=== PATIENT | male | born 1965 | race Two or more races ===

== ENCOUNTER 2021-08-14 21:01 | Emergency (ER) | payer OTHER ==
[~2021-08-14] VITALS: Ht 165.1 cm; Wt 90.7 kg
[2021-08-14] MEDS ORDERED: LOTREL 5-10 MG1 CAP PO (21:06)
[2021-08-14] MEDS ORDERED: INDAPAMIDE1.25 MG PO (21:07)
[2021-08-14] MEDS ORDERED: REMERON15 M1 PO (21:10)
[2021-08-14] MEDS ORDERED: AMBIEN10 MG PO (21:10)
[2021-08-14] MEDS ORDERED: LAMICTAL150 M1 PO (21:10)
[2021-08-14] MEDS ORDERED: LAMICTAL100 MG PO (21:10)
[2021-08-14] MEDS ORDERED: ZYRTEC10 M3 PO (21:11)
[2021-08-14] MEDS ORDERED: SINGULAIR10 MG PO (21:11)
[2021-08-15] MEDS ORDERED: LEVSIN/SL0.125 MG SL (02:28)
[2021-08-15] MEDS ORDERED: ANUSOL-HC30 G2 TOP (02:28)
[2021-08-15] MEDS ORDERED: CIPRO500 MG PO (02:28)
== END 2021-08-15 02:49 | disposition home or self-care (01) ==
LOC: ER 21:01
DX: K60.0 Acute anal fissure (principal); R10.30 Lower abdominal pain, unspecified

== ENCOUNTER 2021-09-18 11:35 | Inpatient (IN) | payer OTHER ==
[~2021-09-18] VITALS: Ht 165.1 cm; Wt 90.7 kg
[~2021-09-18 11:35] MED LIST: AMBIEN10 MG PO; ANUSOL-HC30 G2 TOP; CIPRO500 MG PO; INDAPAMIDE1.25 MG PO; LAMICTAL100 MG PO; LAMICTAL150 M1 PO; LEVSIN/SL0.125 MG SL; LOTREL 5-10 MG1 CAP PO; REMERON15 M1 PO; SINGULAIR10 MG PO; ZYRTEC10 M3 PO
[2021-09-25] MEDS ORDERED: PERCOCET 5-3251 EACH PO (07:38)
[2021-09-25] MEDS ORDERED: INTESTINEX680 M1 PO (07:39)
[2021-09-25] MEDS ORDERED: ANTI-GAS166 MG PO (07:39)
== END 2021-09-25 10:33 | disposition home or self-care (01) | DRG 330 ==
LOC: SURH 09-22 09:30 → O/R 09-22 09:49 → SURH 09-22 12:15
PROVIDERS: ADMIT Surgery; ATTEND Surgery
PROC: 0DBP4ZZ Excision of Rectum, Percutaneous Endoscopic Approach (ICD-10-PCS; 2021-09-22)
PROC: 0DJD8ZZ Inspection of Lower Intestinal Tract, Via Natural or Artificial Opening Endoscopic (ICD-10-PCS; 2021-09-22)
PROC: 0DTN4ZZ Resection of Sigmoid Colon, Percutaneous Endoscopic Approach (ICD-10-PCS; principal; 2021-09-22 09:30)
DX: K57.32 Diverticulitis of large intestine without perforation or abscess without bleeding (principal); F33.9 Major depressive disorder, recurrent, unspecified; I10 Essential (primary) hypertension; E66.8 Other obesity; G47.33 Obstructive sleep apnea (adult) (pediatric); G47.09 Other insomnia

== ENCOUNTER 2024-06-12 07:11 | Day surgery (SDC) | payer OTHER ==
[~2024-06-12 07:11] MED LIST changes: +ANTI-GAS166 MG PO; +INTESTINEX680 M1 PO; +PERCOCET 5-3251 EACH PO
[2024-06-12] MEDS ORDERED: DIPHENHYDRAMINE HCL 50 MG/ML VIAL 1ML IV ONE (12:30)
[2024-06-12] MEDS ORDERED: MIDAZOLAM HCL 2 MG/2 ML VIAL IV ONE (12:30)
[2024-06-12] MEDS ORDERED: fentaNYL CITRATE 50 MCG/ML AMPUL IV PUSH ONE (12:30)
== END 2024-06-12 13:50 | disposition home or self-care (01) ==
LOC: AMB-ENDOS 07:11
PROVIDERS: ATTEND Surgery
DX: K91.89 Other postprocedural complications and disorders of digestive system (principal); K57.30 Diverticulosis of large intestine without perforation or abscess without bleeding; K62.4 Stenosis of anus and rectum

== ENCOUNTER → 2025-04-01 | Emergency (ER) | payer OTHER ==
[~2025-04-01] VITALS: Ht 165.1 cm; Wt 95.3 kg
[2025-04-01 03:50] VITALS: BP 147/75; O2SAT 95
== END | disposition left against medical advice (07) ==
LOC: ER 03:31
DX: Z53.21 Procedure and treatment not carried out due to patient leaving prior to being seen by health care provider (principal)